=== PATIENT | female | born 1975 | race Caucasian/White ===

== ENCOUNTER 2023-02-15 19:38 | Emergency (ER) | payer OTHER ==
[2023-02-15 20:04] VITALS: BP 120/69
--- NOTE | 2023-02-15 20:17 | ED Physician Documentation ---
PD HPI URI - Stated complaint Stated Complaint: R EAR PX - Chief complaint Chief Complaint: Heent - History obtained from History obtained from: Patient - Additional information Additional information: 5 days of muffled hearing in the right ear associated with decreased hearing and sounding like a fog horn in her right ear. No URI symptoms or fevers. PD PAST MEDICAL HISTORY - Present Medications Home Medications: Ambulatory Orders Medication Instructions Recorded Confirmed Amox/Clav 875/125 [Augmentin] 1 each PO Q12H #20 tablet 02/15/23 - Allergies Allergies/Adverse Reactions: Allergies Allergy/AdvReac Type Severity Reaction Status Date / Time No Known Drug Allergies Allergy Verified 02/15/23 20:04 PD ED PE NORMAL - Vitals Vital signs reviewed: Yes - General General: Alert and oriented X 3, No acute distress - HEENT HEENT: Other (serous otitis r ear) - Neck Neck: Supple, no meningeal sign, No bony TTP - Neuro Neuro: Alert and oriented X 3, Normal speech - Psych Psych: Normal mood, Normal affect Results - Vitals Vitals: Vital Signs - 24 hr 02/15/23 20:01 Temperature 36.9 C Heart Rate 63 Respiratory 16 Rate Blood Pressure 120/69 O2 Saturation 100 Oxygen O2 Source Room air PD Medical Decision Making - ED course ED course: 47-year-old with serous otitis in the right ear. Discussed conservative measures and given a [id number] prescription for antibiotics. Departure - Departure Disposition: 01 Home, Self Care Clinical Impression: Serous otitis media Qualifiers: Chronicity: acute Laterality: right Recurrence: non-recurrent Qualified Code(s): H65.01 - Acute serous otitis media, right ear Condition: Good Record reviewed to determine appropriate education?: Yes Instructions: ED Otitis Media Serous Adult Prescriptions: Amox/Clav 875/125 [Augmentin] 1 each PO Q12H #20 tablet Comments: You are seen today for serous otitis of the right ear. This is a noninfectious condition where fluid is collected behind the eardrum, but it can develop into an ear infection. Take Mucinex D, drink plenty of fluids, and you can take occasional Benadryl as needed as well. If you worsen or develop a fever you can start the antibiotics. Follow-up with your doctor in a week if not better.
== END 2023-02-15 20:21 | disposition home or self-care (01) ==
LOC: ED 19:38
DX: H65.01 Acute serous otitis media, right ear (principal)
CPT/HCPCS: 99282; 99283